=== PATIENT | male | born 1995 | race Caucasian/White ===

== ENCOUNTER → 2017-05-16 | Outpatient (CLI) | payer OTHER ==
[2016-03-14 21:33] VITALS: BP 141/82
[~2017-05-16] MED LIST: CLON1TAB PO; FLUO40CA9 PO
--- NOTE | 2017-05-16 11:48 | RAD ---
MRI Lumbar Spine without contrast History: Chronic low back pain, right leg radiculopathy, history of scoliosis and Scheuermann's disease Technique: Multiplanar, multi sequential noncontrast MR imaging was performed of the lumbar spine. Contrast: None Comparison: None Findings: There apparently is transitional anatomy. Most inferior fully formed intervertebral disc space is considered L5-S1 for this report. There is negligible posterior subluxation of L5 relative to S1. There are Schmorl's nodes most notable inferiorly at L2, L1, T12 and superiorly of L1. There is no significant marrow edema. Intervertebral disc spaces are mostly preserved, mild narrowing at L2-3. The conus terminates at T12-L1. There is mild lumbar levoscoliosis. L1-L2: Neural foramina and spinal canal are adequate. L2-L3: Spinal canal and neural foramina are adequate. L3-L4: Spinal canal and neural foramina are adequate. L4-L5: Spinal canal and neural foramina are adequate. L5-S1: There is a negligible disc osteophyte complex and bulge. Neural foramina are overall adequate. Spinal canal is adequate. Impression: 1. There is no significant lumbar spinal stenosis or neural foramina compromise. There are nonedematous Schmorl's nodes. There is mild lumbar levoscoliosis. Electronically signed by: Jordon Mckeon MD (05/16/2017 11:44 AM)
== END | disposition home or self-care (01) ==
LOC: MRI 10:43
PROVIDERS: ATTEND Family Medicine
DX: M51.46 Schmorl's nodes, lumbar region (principal); M54.16 Radiculopathy, lumbar region
CPT/HCPCS: 72148